=== PATIENT | male | born 1965 | race African-American/Black ===

== ENCOUNTER 2018-09-06 09:08 | Emergency (ER) | payer OTHER ==
[~2018-09-06] VITALS: Ht 188 cm; Wt 111.1 kg
[~2018-09-06 09:08] MED LIST: LISI-219 PO; LOVA20TA2 PO; PANT40TA4 PO
[2018-09-06 09:20] VITALS: BP_SYST 138
[2018-09-06 11:06] VITALS: BP_SYST 122
== END 2018-09-06 11:04 | disposition home or self-care (01) ==
LOC: SED 09:08
DX: M79.18 Myalgia, other site (principal); Z79.899 Other long term (current) drug therapy
CPT/HCPCS: 70450-TC; 72125-TC; 99284

== ENCOUNTER 2019-10-27 10:38 | Emergency (ER) | payer OTHER ==
[~2019-10-27] VITALS: Ht 188 cm; Wt 111.1 kg
[2019-10-27 10:50] VITALS: BP_SYST 137
--- NOTE | 2019-10-27 10:50 | NUR ---
Patient to ER bed 5 to gown for evaluation. Side rails up. Report given to Mica YEE.
--- NOTE | 2019-10-27 10:52 | NUR ---
Patient arrived in the ED c/o left wrist pain that started Saturday. Denied any recent injury or trauma. Denied any chest pain or shortness of breath. Denied any fevers, chills, nausea or vomiting. Patient is alert and oriented x4, respirations even and unlabored, speaking in full sentences, and ambulating with a steady gait. VSS, pain level 6/10 - Taking Ibuprofen for it. Informed of the approximate wait time. Instructed to notify ED staff for any changes in condition or worsening of symptoms while waiting to be seen by an ED provider. Patient verbalized understanding.
--- NOTE | 2019-10-27 10:58 | NUR ---
ER Dr. Alicia Esposito at bedside examining patient.
[2019-10-27 11:54] LABS: BASOPHILS % (AUTO) 0.6 % (0.0-2.0); EOSINOPHILS # (AUTO) 0.2 K/uL (0.0-0.4); EOSINOPHILS % (AUTO) 2.3 % (0.0-4.0); HEMATOCRIT 43.5 % (36-54); HEMOGLOBIN 14.6 g/dL (14.0-18.0); LYMPHOCYTES # (AUTO) 1.8 K/uL (1.0-5.5); LYMPHOCYTES % (AUTO) 24.5 % (20.5-51.5); MEAN CORPUSCULAR HEMOGLOBIN 30 pg (27-31); MEAN CORPUSCULAR HGB CONC 33 % (32-36); MEAN CORPUSCULAR VOLUME 91 fL (79.0-98.0); MONOCYTES # (AUTO) 0.8 K/uL (0.0-1.0); MONOCYTES % (AUTO) 10.9 % (1.7-9.3); NEUTROPHILS # (AUTO) 4.4 K/uL (1.8-7.7); NEUTROPHILS % (AUTO) 61.7 % (40.0-70.0); PLATELET COUNT (AUTO) 193 K/uL (130-430); RED BLOOD CELL COUNT(AUTO) 4.81 MIL/uL (4.2-6.2); RED CELL DISTRIBUTION WIDTH 13.9 % (9.0-15.0); WHITE BLOOD COUNT (AUTO) 7.2 K/uL (4.8-10.8)
--- NOTE | 2019-10-27 11:56 | NUR ---
pt getting x-ray at the bedside
[2019-10-27 12:12] LABS: CALCIUM 9.1 mg/dL (8.4-11.0); CREATININE 1.18 mg/dL (0.55-1.30); POTASSIUM 3.9 mmol/L (3.5-5.1)
[2019-10-27 12:16] LABS: ALBUMIN 3.8 g/dL (3.4-4.8); C-REACTIVE PROTEIN QUANT 1.1 mg/dL (0-0.5); PROTHROMBIN TIME 10.4 SECS (9.5-12.5); TOTAL BILIRUBIN 0.8 mg/dL (0.0-1.0); URIC ACID 7.6 mg/dL (2.4-7.0)
[2019-10-27 12:35] LABS: ERYTHROCYTE SEDIMENTATION RATE 10 MM/HR (0-15)
--- NOTE | 2019-10-27 13:05 | NUR ---
Patient given written and verbal discharge instructions and verbalizes understanding. ER MD discussed with patient the results and treatment provided. Patient in stable condition. ID arm band removed. Rx of [place], Motrin, and Allopurinol given. Patient educated on pain management and to follow up with PMD. Pain Scale 0/10. Opportunity for questions provided and answered. Medication side effect fact sheet provided.
[2019-10-27 13:06] VITALS: BP_SYST 137
== END 2019-10-27 13:06 | disposition home or self-care (01) ==
LOC: SED 10:38
DX: M10.9 Gout, unspecified (principal); Z79.899 Other long term (current) drug therapy
CPT/HCPCS: 36415; 80053; 84550-TC; 85025; 85610-TC; 85651-TC; 85730-TC; 86140; 99284